=== PATIENT | female | born 1955 | race African-American/Black ===

== ENCOUNTER 2021-05-25 16:20 | Inpatient (IN) | payer MEDICARE, MEDICAID ==
[~2021-05-25] VITALS: Ht 165.1 cm; Wt 74.6 kg
[2021-05-25 17:17] LABS: Basophils # (auto) 0.1 10 ^3/uL (0-0.2); Basophils % (auto) 0.8 % (0.0-2.0); Eosinophils # (auto) 0 10 ^3/uL (0-0.8); Eosinophils % (auto) 0.1 % (0.0-7.0); Hematocrit 45.9 % (36.0-46.0); Hemoglobin 15.1 g/dL (12.2-16.2); Lymphocytes # (auto) 2.7 10 ^3/uL (0.4-5.4); Mean Corpuscular Hemoglobin 27.5 pg (28.0-32.0); Mean Corpuscular Hgb Conc. 32.9 g/dL (32.0-36.0); Mean Corpuscular Volume 83.7 fL (80.0-100.0); Monocytes # (auto) 1.1 10 ^3/uL (0-1.3); Monocytes % (auto) 6.6 % (0.0-12.0); Neutrophils # (auto) 12.9 10 ^3/uL (1.6-8.6); Neutrophils % (auto) 76.5 % (37.0-80.0); Nucleated Red Blood Cells % 0.1 %; Red Blood Cells 5.48 10^6/uL (4.0-5.20); Red Cell Distribution Width 14.7 % (11.8-14.3); White Blood Cell 16.8 10^3/uL (4.4-10.8)
[2021-05-25 17:25] LABS: Alanine Aminotransferase 38 U/L (13-56); Albumin 3.4 g/dL (3.4-5.0); Anion Gap 9 (5-15); Aspartate Aminotransferase 31 U/L (15-37); BUN/Creatinine Ratio 11.8; Blood Urea Nitrogen 13 mg/dL (7-18); Calcium 9.8 mg/dL (8.5-10.1); Carbon Dioxide 28 mmol/L (21-32); Chloride 101 mmol/L (98-107); GFR African American 64 mL/min; GFR Non-African American 53 mL/min; Glucose 94 mg/dL (74-106); Potassium 4.1 mmol/L (3.5-5.1); Sodium 138 mmol/L (136-145)
[2021-05-25 17:30] LABS: Alkaline Phosphatase 93 U/L (45-117); Bilirubin, Total 0.3 mg/dL (0.2-1.0); Total Protein 8.4 g/dL (6.4-8.2)
[2021-05-25 18:14] LABS: Urine Bacteria NONE SEEN /hpf (None Seen); Urine Blood Negative /uL (Negative); Urine Specific Gravity 1.013 (1.001-1.035); Urine WBC 1 /hpf (0 - 5)
[2021-05-25] MEDS ORDERED: IOHEXOL 350 MG/ML 100ML IJ ONE (18:31)
[2021-05-26] VITALS (8 sets, daily range): BP systolic 122–170; BP diastolic 64–92
[2021-05-26] MEDS ORDERED: MORPHINE SULFATE INJECTION 2 MG/ML SYRG IV PRN
[2021-05-26] MEDS ORDERED: hydrALAZINE HCL 20 MG/ML VL IV PRN
[2021-05-26] MEDS ORDERED: HYDROcodone-ACET 5/325MG TAB PO PRN
[2021-05-26] MEDS ORDERED: ACETAMINOPHEN 325 MG TAB PO PRN
[2021-05-26] MEDS ORDERED: ONDANSETRON HCL 4 MG/2 ML VIAL IV PRN
[2021-05-26] MEDS ORDERED: NITROGLYCERIN 0.4 MG SL TAB SL PRN
[2021-05-26] MEDS ORDERED: IOHEXOL 350 MG/ML 100ML IJ ONE (01:14)
[2021-05-26] MEDS ORDERED: CARV3.1240 PO (05:41)
[2021-05-26] MEDS ORDERED: ONDA-144 PO (05:41)
[2021-05-26] MEDS ORDERED: PANT40TA2 PO (05:41)
[2021-05-26] MEDS ORDERED: AMLO-489 PO (05:41)
[2021-05-26] MEDS ORDERED: PRED1PAK9 PO (05:41)
[2021-05-26] MEDS ORDERED: RIV20T PO (05:41)
[2021-05-26 07:26] LABS: INR 1.05 (0.9-1.15); Partial Thromboplastin Time 36.3 sec (23.6-33.0)
[2021-05-26 07:34] LABS: Basophils # (auto) 0.1 10 ^3/uL (0-0.2); Basophils % (auto) 0.5 % (0.0-2.0); Eosinophils # (auto) 0.1 10 ^3/uL (0-0.8); Eosinophils % (auto) 0.7 % (0.0-7.0); Hematocrit 46.9 % (36.0-46.0); Hemoglobin 14.9 g/dL (12.2-16.2); Lymphocytes # (auto) 5.1 10 ^3/uL (0.4-5.4); Lymphocytes % (auto) 31.3 % (10.0-50.0); Mean Corpuscular Hemoglobin 27.5 pg (28.0-32.0); Mean Corpuscular Hgb Conc. 31.8 g/dL (32.0-36.0); Mean Corpuscular Volume 86.2 fL (80.0-100.0); Monocytes # (auto) 1.2 10 ^3/uL (0-1.3); Monocytes % (auto) 7.5 % (0.0-12.0); Neutrophils # (auto) 9.9 10 ^3/uL (1.6-8.6); Red Blood Cells 5.44 10^6/uL (4.0-5.20); Red Cell Distribution Width 14.9 % (11.8-14.3); White Blood Cell 16.4 10^3/uL (4.4-10.8)
[2021-05-26 08:08] LABS: Albumin 3.2 g/dL (3.4-5.0); Calcium 9.6 mg/dL (8.5-10.1); Potassium 3.4 mmol/L (3.5-5.1)
[2021-05-26 08:12] LABS: BUN/Creatinine Ratio 13.5; Bilirubin, Total 0.2 mg/dL (0.2-1.0); Total Protein 7.7 g/dL (6.4-8.2)
[2021-05-26] MEDS: levoFLOXacin 500MG 100 ML IV SCH (08:54)
[2021-05-26] MEDS: ZINC SULFATE 220mg CAP or TAB PO SCH (08:54)
[2021-05-26] MEDS: APIXABAN 5 MG TAB PO SCH ×2 (08:54→22:30)
[2021-05-26] MEDS: ASCORBIC ACID 500 MG TAB PO SCH ×2 (08:55→22:30)
[2021-05-26] MEDS: MULTIPLE VITAMIN TAB PO SCH (08:55)
[2021-05-26] MEDS: FAMOTIDINE (10MG/ML) 2ML VL IV SCH (10:39)
[2021-05-26] MEDS: amLODIPine BESYLATE 5 MG TAB PO SCH (10:40)
[2021-05-26] MEDS: SODIUM CHLORIDE 0.9% 1,000 ML IV SCH (16:36)
[2021-05-26] MEDS: CARVEDILOL 3.125 MG TAB PO SCH (22:30)
[2021-05-27 05:00] VITALS: BP 138/76
[2021-05-27 06:06] LABS: Basophils # (auto) 0.1 10 ^3/uL (0-0.2); Basophils % (auto) 0.6 % (0.0-2.0); Eosinophils # (auto) 0.1 10 ^3/uL (0-0.8); Eosinophils % (auto) 0.9 % (0.0-7.0); Hematocrit 44.5 % (36.0-46.0); Hemoglobin 14.4 g/dL (12.2-16.2); Lymphocytes # (auto) 4.9 10 ^3/uL (0.4-5.4); Lymphocytes % (auto) 38.1 % (10.0-50.0); Mean Corpuscular Hemoglobin 27.5 pg (28.0-32.0); Mean Corpuscular Hgb Conc. 32.3 g/dL (32.0-36.0); Mean Corpuscular Volume 85.1 fL (80.0-100.0); Monocytes # (auto) 0.9 10 ^3/uL (0-1.3); Monocytes % (auto) 7.1 % (0.0-12.0); Neutrophils # (auto) 6.9 10 ^3/uL (1.6-8.6); Neutrophils % (auto) 53.3 % (37.0-80.0); Nucleated Red Blood Cells % 0.1 %; Red Blood Cells 5.22 10^6/uL (4.0-5.20); Red Cell Distribution Width 14.7 % (11.8-14.3)
[2021-05-27 06:26] LABS: Chloride 108 mmol/L (98-107); Potassium 3.7 mmol/L (3.5-5.1); Sodium 139 mmol/L (136-145)
[2021-05-27 06:34] LABS: Anion Gap 7 (5-15); BUN/Creatinine Ratio 15.5; Blood Urea Nitrogen 13 mg/dL (7-18); Calcium 9.2 mg/dL (8.5-10.1); Carbon Dioxide 24 mmol/L (21-32); GFR African American 87 mL/min; GFR Non-African American 72 mL/min; Glucose 83 mg/dL (74-106); Magnesium 2.5 mg/dL (1.6-2.6)
[2021-05-27 09:00] VITALS: BP 141/73
[2021-05-27] MEDS: SODIUM CHLORIDE 0.9% 1,000 ML IV SCH (09:30)
[2021-05-27] MEDS ORDERED: levoFLOXacin 250MG 50 ML IV SCH (10:00)
[2021-05-27] MEDS: levoFLOXacin 500MG 100 ML IV SCH (10:00)
[2021-05-27] MEDS: ASCORBIC ACID 500 MG TAB PO SCH ×2 (10:13→22:00)
[2021-05-27] MEDS: FAMOTIDINE (10MG/ML) 2ML VL IV SCH (10:13)
[2021-05-27] MEDS: APIXABAN 5 MG TAB PO SCH ×2 (11:12→22:00)
[2021-05-27] MEDS: ZINC SULFATE 220mg CAP or TAB PO SCH (11:12)
[2021-05-27] MEDS: MULTIPLE VITAMIN TAB PO SCH (11:15)
[2021-05-27] MEDS: CARVEDILOL 3.125 MG TAB PO SCH ×2 (11:16→22:00)
[2021-05-27] MEDS: amLODIPine BESYLATE 5 MG TAB PO SCH (11:30)
[2021-05-27] MEDS ORDERED: GABA300C10 PO (12:34)
[2021-05-27 13:00] VITALS: BP 128/74
[2021-05-27 16:41] VITALS: BP 108/55
[2021-05-27 20:00] VITALS: BP 143/65
[2021-05-27 22:00] VITALS: BP 129/61
[2021-05-27] MEDS: GABAPENTIN 300 MG CAP PO SCH (22:00)
[2021-05-28] MEDS: SODIUM CHLORIDE 0.9% 1,000 ML IV SCH (00:50)
[2021-05-28] MEDS ORDERED: DOCUSATE SOD 100 MG CAP PO PRN (01:30)
[2021-05-28 05:00] VITALS: BP 136/72
[2021-05-28] MEDS: GABAPENTIN 300 MG CAP PO SCH ×2 (06:00→14:15)
[2021-05-28 06:50] LABS: Basophils # (auto) 0.1 10 ^3/uL (0-0.2); Basophils % (auto) 0.4 % (0.0-2.0); Eosinophils # (auto) 0.2 10 ^3/uL (0-0.8); Eosinophils % (auto) 1.5 % (0.0-7.0); Hematocrit 42.5 % (36.0-46.0); Hemoglobin 13.5 g/dL (12.2-16.2); Lymphocytes # (auto) 5.3 10 ^3/uL (0.4-5.4); Lymphocytes % (auto) 39.1 % (10.0-50.0); Mean Corpuscular Hemoglobin 27.5 pg (28.0-32.0); Mean Corpuscular Hgb Conc. 31.9 g/dL (32.0-36.0); Mean Corpuscular Volume 86.3 fL (80.0-100.0); Monocytes # (auto) 1.2 10 ^3/uL (0-1.3); Monocytes % (auto) 8.9 % (0.0-12.0); Neutrophils # (auto) 6.8 10 ^3/uL (1.6-8.6); Neutrophils % (auto) 50.1 % (37.0-80.0); Nucleated Red Blood Cells % 0.1 %; Red Blood Cells 4.92 10^6/uL (4.0-5.20); Red Cell Distribution Width 15.2 % (11.8-14.3); White Blood Cell 13.6 10^3/uL (4.4-10.8)
[2021-05-28 07:01] LABS: BUN/Creatinine Ratio 13.4; Calcium 8.9 mg/dL (8.5-10.1); Potassium 4.4 mmol/L (3.5-5.1)
[2021-05-28 09:00] VITALS: BP 130/72
[2021-05-28] MEDS: FAMOTIDINE (10MG/ML) 2ML VL IV SCH (10:33)
[2021-05-28] MEDS: ASCORBIC ACID 500 MG TAB PO SCH (10:33)
[2021-05-28] MEDS: APIXABAN 5 MG TAB PO SCH (10:33)
[2021-05-28] MEDS: ZINC SULFATE 220mg CAP or TAB PO SCH (10:35)
[2021-05-28] MEDS: MULTIPLE VITAMIN TAB PO SCH (10:35)
[2021-05-28] MEDS: CARVEDILOL 3.125 MG TAB PO SCH (10:38)
[2021-05-28] MEDS: amLODIPine BESYLATE 5 MG TAB PO SCH (10:39)
[2021-05-28] MEDS ORDERED: levoFLOXacin 500MG 100 ML IV SCH (10:40)
[2021-05-28] MEDS ORDERED: LEVO500T31 PO (11:03)
[2021-05-28 13:00] VITALS: BP 148/87
[2021-05-28 14:42] VITALS: BP 130/72
[2021-06-02] MEDS ORDERED: APIXABAN 5 MG TAB PO SCH (10:00)
== END 2021-05-28 16:00 | disposition home health service (06) | DRG 299 ==
LOC: ER 16:25 → OVERFLOW 23:46 → CENTRAL 05-26 03:11
PROVIDERS: ADMIT Nurse Practitioner Family; ATTEND Internal Medicine
DX: I82.411 Acute embolism and thrombosis of right femoral vein (principal); N17.0 Acute kidney failure with tubular necrosis; L03.90 Cellulitis, unspecified; R65.10 Systemic inflammatory response syndrome (SIRS) of non-infectious origin without acute organ dysfunction; L97.929 Non-pressure chronic ulcer of unspecified part of left lower leg with unspecified severity; I82.431 Acute embolism and thrombosis of right popliteal vein; I10 Essential (primary) hypertension; I70.0 Atherosclerosis of aorta; I70.202 Unspecified atherosclerosis of native arteries of extremities, left leg; J43.9 Emphysema, unspecified; K44.9 Diaphragmatic hernia without obstruction or gangrene; N83.201 Unspecified ovarian cyst, right side; G89.4 Chronic pain syndrome; E66.9 Obesity, unspecified; Z20.822 Contact with and (suspected) exposure to COVID-19; Z90.49 Acquired absence of other specified parts of digestive tract; Z82.49 Family history of ischemic heart disease and other diseases of the circulatory system; Z79.01 Long term (current) use of anticoagulants; Z95.828 Presence of other vascular implants and grafts; Z86.711 Personal history of pulmonary embolism; Z68.27 Body mass index [BMI] 27.0-27.9, adult; Z83.79 Family history of other diseases of the digestive system; Z86.718 Personal history of other venous thrombosis and embolism
CPT/HCPCS: 36415; 71275; 75635; 80048; 80053; 81001; 83735; 84484; 85025; 85610; 85730; 87426; 93970; G0378; J1956; J2405; J3490